=== PATIENT | male | born 1995 | race Asian ===

== ENCOUNTER 2019-08-27 22:26 | Emergency (ER) | payer OTHER ==
[~2019-08-27] VITALS: Ht 165.1 cm; Wt 63.5 kg
--- NOTE | 2019-08-27 22:45 | NUR ---
Dr Gan at bedside for MSE.
[2019-08-27] MEDS ORDERED: LIDOCAINE HCL 1% 20 ML VIAL IJ ONE (23:00)
--- NOTE | 2019-08-27 23:42 | NUR ---
Dr Gan at bedside for laceration repair.
[2019-08-27 23:44] VITALS: BP 125/70
[2019-08-27] MEDS ORDERED: BACITRACIN ZINC OINT 15 GM TUBE TOP ONE (23:45)
--- NOTE | 2019-08-27 23:50 | NUR ---
Applied triple antibiotic ointment on pointer finger of L hand and wrapped in clean dry dressing. Patient discharged to home in stable condition. Written and verbal after care instructions given. Patient verbalizes understanding of instructions. Stressed follow up or return to ER for worsening s/s. Ambulated out of ER in stable condition.
[2019-08-27] MEDS ORDERED: MUPIROCIN 2% OINT 22 GM TUBE ONE (23:55)
[2019-08-28] MEDS ORDERED: NEOMY/BACITRA/POLYMYXIN B OINT UD PACKET TP ONE
== END 2019-08-27 23:50 | disposition home or self-care (01) ==
LOC: ER 22:34
DX: S61.211A Laceration without foreign body of left index finger without damage to nail, initial encounter (principal); W26.0XXA Contact with knife, initial encounter; Y93.G1 Activity, food preparation and clean up; Y92.511 Restaurant or cafe as the place of occurrence of the external cause; Y99.0 Civilian activity done for income or pay
CPT/HCPCS: 12001; 99282; J3490; A4663

== ENCOUNTER 2019-08-29 23:03 | Emergency (ER) | payer OTHER ==
[~2019-08-29] VITALS: Ht 170.2 cm; Wt 61.2 kg
--- NOTE | 2019-08-29 23:21 | NUR ---
Dr Sorto into eval patient.
--- NOTE | 2019-08-29 23:34 | NUR ---
Patient discharged to home in stable condition. Written and verbal after care instructions given. Patient verbalizes understanding of instructions. Stressed follow up or return to ER for worsening s/s.
== END 2019-08-29 23:35 | disposition home or self-care (01) ==
LOC: ER 23:05
DX: S61.211D Laceration without foreign body of left index finger without damage to nail, subsequent encounter (principal); W45.8XXD Other foreign body or object entering through skin, subsequent encounter
CPT/HCPCS: A4663

== ENCOUNTER 2019-09-08 22:53 | Emergency (ER) | payer OTHER ==
[~2019-09-08] VITALS: Ht 165.1 cm; Wt 63.5 kg
--- NOTE | 2019-09-08 23:05 | NUR ---
Dr. Rasmussen at bedside for MSE.
[2019-09-08 23:13] VITALS: BP 133/95
--- NOTE | 2019-09-08 23:13 | NUR ---
Patient discharged to home in stable condition. Written and verbal after care instructions given. Patient verbalizes understanding of instructions. Stressed follow up or return to ER for worsening s/s. Patient ambulated out of ER with steady gait, no acute signs of distress, VSS, all belongings taken.
== END 2019-09-08 23:13 | disposition home or self-care (01) ==
LOC: ER 22:57
DX: S61.211D Laceration without foreign body of left index finger without damage to nail, subsequent encounter (principal); W26.0XXD Contact with knife, subsequent encounter
CPT/HCPCS: A4663